=== PATIENT | male | born 1950 | race Caucasian/White ===

== ENCOUNTER → 2019-12-15 | Outpatient (CLI) | payer MEDICARE ==
[~2019-12-15] MED LIST: ALFU10TA PO; ASPI-496 PO; OXYC-302 PO; ROSU5TAB PO
== END | disposition home or self-care (01) ==
LOC: CVU 14:30
PROVIDERS: ATTEND Internal Medicine Cardiovascular Disease
DX: I65.23 Occlusion and stenosis of bilateral carotid arteries (principal); I63.9 Cerebral infarction, unspecified
CPT/HCPCS: 93880

== ENCOUNTER → 2020-05-28 | Outpatient (CLI) | payer MEDICARE ==
[~2020-05-28] MED LIST changes: -OXYC-302 PO; +OXYC1TAB14 PO
== END | disposition home or self-care (01) ==
LOC: STAR 10:30
PROVIDERS: ATTEND Hospitalist
DX: Z20.822 Contact with and (suspected) exposure to COVID-19 (principal)
CPT/HCPCS: U0003

== ENCOUNTER 2020-06-01 09:43 | Day surgery (SDC) | payer MEDICARE ==
[~2020-06-01] VITALS: Ht 175.3 cm; Wt 75.0 kg
[~2020-06-01 09:43] MED LIST changes: +OXYC1TAB12 PO; -OXYC1TAB14 PO
[2020-06-01] MEDS ORDERED: SODIUM CHLORIDE 0.9% 1,000 ML IV SCH (10:00)
[2020-06-01] MEDS ORDERED: PLEASE ENTER HEIGHT AND WEIGHT MC SCH (10:00)
[2020-06-01] MEDS ORDERED: ASPI81TA45 PO (10:00)
[2020-06-01 10:03] VITALS: BP 119/84
[2020-06-01] MEDS ORDERED: LIDOCAINE 2%, 20ML ONE (11:08)
[2020-06-01] MEDS ORDERED: PROPOFOL 10 MG/ML, 20ML ONE (11:37)
== END 2020-06-01 13:14 | disposition home or self-care (01) ==
LOC: CACL 09:43
PROVIDERS: ATTEND Internal Medicine Cardiovascular Disease
DX: I63.9 Cerebral infarction, unspecified (principal); I08.2 Rheumatic disorders of both aortic and tricuspid valves; E78.2 Mixed hyperlipidemia; Z79.82 Long term (current) use of aspirin; Z79.899 Other long term (current) drug therapy; Z87.891 Personal history of nicotine dependence; Z98.890 Other specified postprocedural states; Z80.51 Family history of malignant neoplasm of kidney
CPT/HCPCS: 33285; 93312; 93325; C1764; J2704

== ENCOUNTER 2020-09-11 05:49 | Day surgery (SDC) | payer MEDICARE ==
[~2020-09-11] VITALS: Ht 175.3 cm; Wt 72.7 kg
[~2020-09-11 05:49] MED LIST changes: +ASPI81TA45 PO; -OXYC1TAB12 PO; +OXYC1TAB14 PO
[2020-09-11 06:16] VITALS: BP 126/78
[2020-09-11 06:42] LABS: BASOPHILS % (AUTO) 1 % (0-1); EOSINOPHILS % (AUTO) 3 % (1-7); LYMPHOCYTES % (AUTO) 27 % (22-44); MEAN CORPUSCULAR HEMOGLOBIN 30.3 pg (27.5-34.5); MEAN CORPUSCULAR HGB CONC 34.2 g/dL (33.2-36.2); MEAN PLATELET VOLUME 7.1 fL (7.4-10.4); MONOCYTES % (AUTO) 8 % (2-9); NEUTROPHILS % (AUTO) 62 % (42-75); PLATELET COUNT 231 x10^3/uL (130-400); RED BLOOD COUNT 4.77 x10^6/uL (4.38-5.82); RED CELL DISTRIBUTION WIDTH 13.4 % (9.4-14.8)
[2020-09-11 06:52] LABS: CALCIUM 8.4 mg/dL (8.5-10.1); CHLORIDE 112 mmol/L (98-107)
[2020-09-11 06:53] LABS: INTERNATIONAL NORMALIZED RATIO 1.01 (0.93-1.1); PROTHROMBIN TIME 10.8 Seconds (9.6-11.5)
[2020-09-11 07:04] LABS: ANION GAP 4 mmol/L (5-15)
[2020-09-11] MEDS ORDERED: MIDAZOLAM 1 MG/ML, 2ML ONE (07:18)
[2020-09-11] MEDS ORDERED: FENTANYL PF 100 MCG/2ML ONE (07:19)
[2020-09-11] MEDS ORDERED: VERAPAMIL 2.5 MG/ML, 2ML ONE (07:19)
[2020-09-11] MEDS ORDERED: LIDOCAINE 2%, 20ML ONE (07:19)
[2020-09-11] MEDS ORDERED: HEPARIN 1,000 UNITS/ML, 10ML ONE (07:19)
== END 2020-09-11 11:53 | disposition home or self-care (01) ==
LOC: CACL 05:49
PROVIDERS: ATTEND Internal Medicine Cardiovascular Disease
DX: Z01.810 Encounter for preprocedural cardiovascular examination (principal); I63.9 Cerebral infarction, unspecified; I35.1 Nonrheumatic aortic (valve) insufficiency; E78.2 Mixed hyperlipidemia; E66.3 Overweight; Z68.23 Body mass index [BMI] 23.0-23.9, adult; Z79.01 Long term (current) use of anticoagulants; Z79.82 Long term (current) use of aspirin; Z79.899 Other long term (current) drug therapy; Z87.891 Personal history of nicotine dependence; Z80.51 Family history of malignant neoplasm of kidney; Z81.8 Family history of other mental and behavioral disorders
CPT/HCPCS: 36415; 80048; 85025; 85610; 93458; 99156; C1760; C1769; C1894; J2250; J3010; Q9967; J1644

== ENCOUNTER → 2020-09-14 | Outpatient (CLI) | payer MEDICARE ==
[~2020-09-14] MED LIST changes: +OMNIPAQUE 350 MG/ML, 100ML BOTTLE ONE
== END | disposition home or self-care (01) ==
LOC: CFH 07:36
PROVIDERS: ATTEND Thoracic Surgery (Cardiothoracic Vascular Surgery)
DX: J84.10 Pulmonary fibrosis, unspecified (principal); I35.1 Nonrheumatic aortic (valve) insufficiency
CPT/HCPCS: 71275; Q9967

== ENCOUNTER 2020-10-04 07:00 | Emergency (ER) | payer MEDICARE ==
[~2020-10-04 07:00] MED LIST changes: -OMNIPAQUE 350 MG/ML, 100ML BOTTLE ONE
[2020-10-04] MEDS ORDERED: ADENOSINE 6 MG/2 ML ONE (07:26)
[2020-10-04] MEDS ORDERED: ADENOSINE 6 MG/2 ML IVPush ONE (07:30)
[2020-10-04] MEDS ORDERED: SODIUM CHLORIDE FLUSH 10ML SYR IVF ONE (07:30)
[2020-10-04] MEDS ORDERED: SODIUM CHLORIDE 0.9% 1,000ML IVBOLUS ONE (07:30)
--- NOTE | 2020-10-04 07:40 | NUR ---
ADENOSINE GIVEN WITH ERP AT BS. CONVERSION OF SVT TO NSR, RATE OF 80S WITH ONE DOSE 6MG ADENOSINE. VSS/UPDATED IN COMPUTER. ALL ROOM MONITORING IN PLACE. AWAITING LABS AND CXR RESULTS. FAMILY AT BS, CALL LIGHT WITHIN REACH, WARM BLANKET PROVIDED.
[2020-10-04 08:10] LABS: ALBUMIN 2.8 g/dL (3.4-5.0); ANION GAP 5 mmol/L (5-15); BASOPHILS % (AUTO) 0 % (0-1); CALCIUM 7.7 mg/dL (8.5-10.1); CHLORIDE 114 mmol/L (98-107); EOSINOPHILS % (AUTO) 1 % (1-7); LYMPHOCYTES % (AUTO) 20 % (22-44); MEAN CORPUSCULAR HGB CONC 33.7 g/dL (33.2-36.2); MONOCYTES % (AUTO) 8 % (2-9); NEUTROPHILS % (AUTO) 71 % (42-75); PLATELET COUNT 187 x10^3/uL (130-400); RED BLOOD COUNT 4.56 x10^6/uL (4.38-5.82); RED CELL DISTRIBUTION WIDTH 13.9 % (9.4-14.8)
[2020-10-04 08:23] LABS: ALANINE AMINOTRANSFERASE 39 U/L (12-78); ALKALINE PHOSPHATASE 48 U/L (45-117); BILIRUBIN,TOTAL 1.2 mg/dL (0.2-1.0); CREATININE 0.65 mg/dL (0.7-1.3); TOTAL PROTEIN 5.8 g/dL (6.4-8.2); TROPONIN I < 0.015 ng/mL (0.000-0.045)
[2020-10-04 09:44] VITALS: BP 103/62
== END 2020-10-04 09:47 | disposition home or self-care (01) ==
LOC: ED 07:09
DX: I47.1 Supraventricular tachycardia (principal); Z90.89 Acquired absence of other organs
CPT/HCPCS: 36415; 71045; 80053; 83735; 84443; 84484; 85025; 93005; 96374; 99285; J0153; J7030

== ENCOUNTER 2020-10-16 04:31 | Inpatient (IN) | payer MEDICARE ==
[2020-10-15 13:52] LABS: BASOPHILS % (AUTO) 1 % (0-1); EOSINOPHILS % (AUTO) 3 % (1-7); LYMPHOCYTES % (AUTO) 28 % (22-44); MEAN CORPUSCULAR HEMOGLOBIN 30.1 pg (27.5-34.5); MEAN CORPUSCULAR HGB CONC 33.7 g/dL (33.2-36.2); MEAN PLATELET VOLUME 6.9 fL (7.4-10.4); MONOCYTES % (AUTO) 8 % (2-9); NEUTROPHILS % (AUTO) 61 % (42-75); PLATELET COUNT 249 x10^3/uL (130-400); RED BLOOD COUNT 4.65 x10^6/uL (4.38-5.82); RED CELL DISTRIBUTION WIDTH 13.7 % (9.4-14.8)
[2020-10-15 13:57] LABS: MICROSCOPIC NOT IND
[2020-10-15 14:01] LABS: ALANINE AMINOTRANSFERASE 41 U/L (12-78); ALBUMIN 3.5 g/dL (3.4-5.0); ANION GAP 7 mmol/L (5-15); CALCIUM 8.8 mg/dL (8.5-10.1); CHLORIDE 105 mmol/L (98-107)
[2020-10-15 14:03] LABS: INTERNATIONAL NORMALIZED RATIO 1.03 (0.93-1.1)
[2020-10-15 14:04] LABS: ALKALINE PHOSPHATASE 69 U/L (45-117); BILIRUBIN,TOTAL 1.1 mg/dL (0.2-1.0); CREATININE 0.67 mg/dL (0.7-1.3)
[~2020-10-16] VITALS: Ht 175.3 cm; Wt 73.5 kg
[~2020-10-16 04:31] MED LIST changes: +OXYC1TAB12 PO; -OXYC1TAB14 PO
[2020-10-16 04:42] VITALS: BP 119/68
[2020-10-16 04:45] VITALS: BP 127/81
[2020-10-16] MEDS ORDERED: CHLORHEXIDINE 15 ML UDC MM SCH (05:00)
[2020-10-16] MEDS ORDERED: INSULIN LISPRO 100 UNITS/ML, PEN SQ-INSULIN SCH (05:00)
[2020-10-16] MEDS ORDERED: MUPIROCIN OINT 2%, 22GM ONE (05:43)
[2020-10-16] MEDS: MUPIROCIN OINT 2%, 15GM TP SCH ×2 (05:55→17:18)
[2020-10-16] MEDS ORDERED: AMINOCAPROIC ACID 250 MG/ML, 20ML ONE ×2 (06:50→06:51)
[2020-10-16] MEDS ORDERED: PHENYLEPHRINE 10 MG/ML ONE ×2 (06:51→11:00)
[2020-10-16] MEDS ORDERED: PROPOFOL 10 MG/ML, 20ML ONE (06:51)
[2020-10-16] MEDS ORDERED: EPINEPHRINE 1 MG/ML, 1ML ONE (06:51)
[2020-10-16] MEDS ORDERED: ROCURONIUM 10MG/ML,5ML ONE ×2 (06:51)
[2020-10-16] MEDS ORDERED: FENTANYL PF 250 MCG/5ML ONE ×5 (06:52→06:53)
[2020-10-16] MEDS ORDERED: MIDAZOLAM 10MG/2 ML ONE (06:52)
[2020-10-16] MEDS ORDERED: VASOPRESSIN 20 UNIT in SODIUM CHLORIDE 0.9% 99 ML IV PRN (07:30)
[2020-10-16] MEDS ORDERED: DOBUTAMINE 250 MG in SODIUM CHLORIDE 0.9% 230 ML IV PRN (07:30)
[2020-10-16] MEDS ORDERED: MANNITOL PMX 20% 500 ML IVPB PRN (07:30)
[2020-10-16] MEDS ORDERED: POTASSIUM CHLORIDE 80 MEQ, SODIUM BICARBONATE 8.4% 10 MEQ, MAGNESIUM SULFATE 0.5 GM, LI... IV PRN (07:30)
[2020-10-16] MEDS ORDERED: DEXTROSE 4 GM TAB.CHEW PO PRN (07:30)
[2020-10-16] MEDS ORDERED: VANCOMYCIN 1,100 MG in SODIUM CHLORIDE 0.9% 250 ML IV PRN (07:30)
[2020-10-16] MEDS ORDERED: INSULIN REGULAR 100 UNITS/ML, 3ML VIAL IVPush PRN (07:30)
[2020-10-16] MEDS ORDERED: morphine SULFATE 10 MG/ML, 1ML IVPush PRN (07:30)
[2020-10-16] MEDS ORDERED: MIDAZOLAM 1 MG/ML, 2ML IV PRN (07:30)
[2020-10-16] MEDS ORDERED: GLUCAGON 1 MG IM PRN (07:30)
[2020-10-16] MEDS ORDERED: DEXTROSE 50%, 50ML SYRINGE IVPush PRN (07:30)
[2020-10-16] MEDS ORDERED: REGULAR INSULIN 100 UNITS in SODIUM CHLORIDE 0.9% 99 ML IV PRN (07:30)
[2020-10-16] MEDS ORDERED: EPINEPHRINE 5 MG in SODIUM CHLORIDE 0.9% 245 ML IV PRN ×2 (07:30)
[2020-10-16] MEDS ORDERED: PROCHLORPERAZINE 5 MG/ML, 2ML IVPush PRN (07:30)
[2020-10-16] MEDS ORDERED: FENTANYL PF 100 MCG/2ML IV PRN (07:30)
[2020-10-16] MEDS ORDERED: SODIUM CHLORIDE 0.9% 1,000 ML IV SCH (07:30)
[2020-10-16] MEDS ORDERED: OXYcodone IR 5MG TABLET PO PRN (07:30)
[2020-10-16] MEDS ORDERED: NITROGLYCERIN/D5W PMX 250 ML IV PRN (07:30)
[2020-10-16] MEDS ORDERED: DEXMEDETOMIDINE 200 MCG in SODIUM CHLORIDE 0.9% 48 ML IV PRN (07:30)
[2020-10-16] MEDS ORDERED: ONDANSETRON 2MG/ML, 2ML IVPush PRN (07:30)
[2020-10-16] MEDS: OMEPRAZOLE 20 MG CAPSULE.DR PO SCH (07:30)
[2020-10-16] MEDS ORDERED: CEFUROXIME 1.5 GM in SODIUM CHLORIDE 0.9% 50 ML IVPB PRN (07:30)
[2020-10-16] MEDS ORDERED: PHENYLEPHRINE 50 MG in SODIUM CHLORIDE 0.9% 245 ML IV PRN (07:30)
[2020-10-16] MEDS ORDERED: ALBUMIN HUMAN 5% 500 ML IV PRN (07:30)
[2020-10-16] MEDS ORDERED: SODIUM BICARB 8.4%, 50ML SYRINGE IV PRN (07:30)
[2020-10-16] MEDS ORDERED: PROMETHAZINE 25 MG SUPP PR PRN (07:30)
[2020-10-16] MEDS ORDERED: DEXMEDETOMIDINE 400 MCG in SODIUM CHLORIDE 0.9% 96 ML IV PRN (07:30)
[2020-10-16] MEDS ORDERED: AMIODARONE 50 MG/ML, 3ML ONE (08:31)
[2020-10-16] MEDS: ACETAMINOPHEN 500 MG TABLET PO SCH ×3 (09:00→20:32)
[2020-10-16] MEDS ORDERED: CALCIUM CHLORIDE 13.6 MEQ in SODIUM CHLORIDE 0.9% 100 ML IVPB PRN (09:00)
[2020-10-16] MEDS: DOCUSATE 100 MG CAPSULE PO SCH ×2 (09:00→20:33)
[2020-10-16] MEDS: SENNA/DOCUSATE TABLET PO SCH ×2 (09:00→20:33)
[2020-10-16] MEDS: POLYETHYLENE GLYCOL 17 GM PACKET PO SCH (09:00)
[2020-10-16] MEDS ORDERED: SODIUM CHLORIDE FLUSH 10ML SYR IVF SCH (09:00)
[2020-10-16] MEDS: SODIUM CHLORIDE FLUSH 10ML SYR IVF SCH ×2 (09:00→21:18)
[2020-10-16] MEDS ORDERED: LACTATED RINGERS 500 ML IV PRN (09:00)
[2020-10-16] MEDS: KSCALE TO 4.5 IV SCH ×3 (10:00→22:00)
[2020-10-16] MEDS ORDERED: CALCIUM CHLORIDE 10%, 10ML SYR ONE (10:16)
[2020-10-16] MEDS: INSULIN LISPRO 100 UNITS/ML, PEN SQ-INSULIN SCH ×4 (11:00→22:41)
[2020-10-16] MEDS ORDERED: SODIUM BICARBONATE 1 MEQ/ML, 50ML VIAL ONE (11:00)
[2020-10-16] MEDS ORDERED: HEPARIN 1,000 UNITS/ML, 30ML ONE (11:01)
[2020-10-16] MEDS ORDERED: ALBUMIN HUMAN 25% 50 ML ONE (11:01)
[2020-10-16] MEDS ORDERED: LIDOCAINE 2%, 20ML ONE (11:01)
[2020-10-16 11:15] LABS: GLUCOSE BY BLOOD GAS ANALYZER 157 mg/dL (70-110); HEMOGLOBIN BY BLOOD GAS ANALYZ 12.3 g/dL (14.0-18.0); POTASSIUM BY BLOOD GAS ANALYZR 3.8 mmol/L (3.6-5.5)
[2020-10-16 11:16] LABS: FIO2 100 %
[2020-10-16 11:28] LABS: INTERNATIONAL NORMALIZED RATIO 1.22 (0.93-1.1); PROTHROMBIN TIME 12.9 Seconds (9.6-11.5)
[2020-10-16] MEDS: MAGNESIUM SULFATE 1 GM in SODIUM CHLORIDE 0.9% 100 ML IVPB SCH (12:02)
[2020-10-16] MEDS ORDERED: POTASSIUM CHLORIDE PMX 100 ML IV ONE (12:30)
[2020-10-16] MEDS: OXYcodone IR 5MG TABLET PO PRN ×5 (14:06→23:54)
[2020-10-16] MEDS ORDERED: VANCOMYCIN 1,100 MG in SODIUM CHLORIDE 0.9% 250 ML IVPB SCH (17:00)
[2020-10-16] MEDS ORDERED: CEFUROXIME 1.5 GM in SODIUM CHLORIDE 0.9% 50 ML IVPB SCH (17:00)
[2020-10-16] MEDS: CEFUROXIME 1.5 GM in SODIUM CHLORIDE 0.9% 50 ML IVPB SCH (20:03)
[2020-10-16] MEDS ORDERED: DIPHENHYDRAMINE 25 MG CAPSULE PO PRN (21:00)
[2020-10-16] MEDS: VANCOMYCIN 1,100 MG in SODIUM CHLORIDE 0.9% 250 ML IVPB SCH (21:19)
[2020-10-17] MEDS: ACETAMINOPHEN 500 MG TABLET PO SCH ×4 (03:21→20:05)
[2020-10-17] MEDS: INSULIN LISPRO 100 UNITS/ML, PEN SQ-INSULIN SCH ×5 (03:29→20:10)
[2020-10-17 03:49] LABS: BASOPHILS % (AUTO) 0 % (0-1); EOSINOPHILS % (AUTO) 0 % (1-7); LYMPHOCYTES % (AUTO) 5 % (22-44); MEAN CORPUSCULAR HGB CONC 33.3 g/dL (33.2-36.2); MEAN PLATELET VOLUME 7.5 fL (7.4-10.4); MONOCYTES % (AUTO) 8 % (2-9); NEUTROPHILS % (AUTO) 87 % (42-75); PLATELET COUNT 145 x10^3/uL (130-400); RED BLOOD COUNT 3.54 x10^6/uL (4.38-5.82); RED CELL DISTRIBUTION WIDTH 13.6 % (9.4-14.8)
[2020-10-17 03:53] LABS: ANION GAP 5 mmol/L (5-15); CALCIUM 8.1 mg/dL (8.5-10.1); CHLORIDE 111 mmol/L (98-107); CREATININE 0.55 mg/dL (0.7-1.3)
[2020-10-17] MEDS: KSCALE TO 4.5 IV SCH (04:08)
[2020-10-17] MEDS: OXYcodone IR 5MG TABLET PO PRN ×3 (05:30→20:04)
[2020-10-17] MEDS: MUPIROCIN OINT 2%, 15GM TP SCH (06:30)
[2020-10-17] MEDS: MUPIROCIN OINT 2%, 15GM NAS SCH ×2 (06:30→18:00)
[2020-10-17] MEDS: CEFUROXIME 1.5 GM in SODIUM CHLORIDE 0.9% 50 ML IVPB SCH (07:52)
[2020-10-17] MEDS: DOCUSATE 100 MG CAPSULE PO SCH ×2 (08:43→20:05)
[2020-10-17] MEDS: ASPIRIN 81 MG TABLET EC PO SCH (08:43)
[2020-10-17] MEDS: OMEPRAZOLE 20 MG CAPSULE.DR PO SCH (08:43)
[2020-10-17] MEDS: POLYETHYLENE GLYCOL 17 GM PACKET PO SCH ×2 (08:43→10:00)
[2020-10-17] MEDS: SENNA/DOCUSATE TABLET PO SCH ×2 (08:43→20:05)
[2020-10-17] MEDS: CHLORHEXIDINE 15 ML UDC MM SCH ×2 (08:44→20:05)
[2020-10-17] MEDS: SODIUM CHLORIDE FLUSH 10ML SYR IVF SCH ×2 (08:44→20:06)
[2020-10-17] MEDS: VANCOMYCIN 1,100 MG in SODIUM CHLORIDE 0.9% 250 ML IVPB SCH (08:47)
[2020-10-17] MEDS ORDERED: KETOROLAC 15 MG/1ML IVPush SCH (11:00)
[2020-10-17] MEDS: FUROSEMIDE 20 MG/2 ML IV SCH (11:27)
[2020-10-17] MEDS: POTASSIUM CHLORIDE 10 MEQ TABLET.ER PO SCH (11:27)
[2020-10-17] MEDS: GUAIFENESIN ER 600 MG TABLET PO SCH ×2 (11:27→20:05)
[2020-10-17] MEDS: MAGNESIUM SULFATE 1 GM in SODIUM CHLORIDE 0.9% 100 ML IVPB SCH (11:30)
[2020-10-17] MEDS: KETOROLAC 30 MG/1 ML IVPush SCH ×2 (12:19→18:06)
[2020-10-17 13:35] VITALS: BP 107/76
[2020-10-17 19:32] VITALS: BP 119/77
[2020-10-18] MEDS: KETOROLAC 30 MG/1 ML IVPush SCH ×4 (00:12→17:10)
[2020-10-18 02:00] VITALS: BP 145/79
[2020-10-18] MEDS: OXYcodone IR 5MG TABLET PO PRN ×7 (02:02→21:24)
[2020-10-18] MEDS: ACETAMINOPHEN 500 MG TABLET PO SCH ×4 (02:03→21:22)
[2020-10-18] MEDS: MUPIROCIN OINT 2%, 15GM NAS SCH ×2 (05:21→17:24)
[2020-10-18 06:18] LABS: BASOPHILS % (AUTO) 0 % (0-1); EOSINOPHILS % (AUTO) 0 % (1-7); LYMPHOCYTES % (AUTO) 10 % (22-44); MEAN CORPUSCULAR HEMOGLOBIN 31.2 pg (27.5-34.5); MEAN CORPUSCULAR HGB CONC 34.7 g/dL (33.2-36.2); MEAN PLATELET VOLUME 7.4 fL (7.4-10.4); MONOCYTES % (AUTO) 8 % (2-9); NEUTROPHILS % (AUTO) 81 % (42-75); PLATELET COUNT 115 x10^3/uL (130-400); RED BLOOD COUNT 3.37 x10^6/uL (4.38-5.82); RED CELL DISTRIBUTION WIDTH 13.7 % (9.4-14.8)
[2020-10-18 06:29] LABS: ANION GAP 4 mmol/L (5-15); CALCIUM 7.9 mg/dL (8.5-10.1); CHLORIDE 108 mmol/L (98-107); CREATININE 0.53 mg/dL (0.7-1.3)
[2020-10-18] MEDS: INSULIN LISPRO 100 UNITS/ML, PEN SQ-INSULIN SCH ×4 (07:00→22:35)
[2020-10-18] MEDS ORDERED: BISACODYL 10 MG SUPP PR PRN (07:30)
[2020-10-18 07:59] LABS: O2 FLOW ROOM AIR L/min
[2020-10-18] MEDS: CHLORHEXIDINE 15 ML UDC MM SCH ×2 (08:45→21:23)
[2020-10-18] MEDS: OMEPRAZOLE 20 MG CAPSULE.DR PO SCH (08:46)
[2020-10-18] MEDS: POTASSIUM CHLORIDE 10 MEQ TABLET.ER PO SCH (08:46)
[2020-10-18] MEDS: DOCUSATE 100 MG CAPSULE PO SCH ×2 (08:46→21:23)
[2020-10-18] MEDS: SENNA/DOCUSATE TABLET PO SCH ×2 (08:46→21:22)
[2020-10-18] MEDS: GUAIFENESIN ER 600 MG TABLET PO SCH ×2 (08:46→21:23)
[2020-10-18] MEDS: ASPIRIN 81 MG TABLET EC PO SCH (08:46)
[2020-10-18] MEDS: FUROSEMIDE 20 MG/2 ML IV SCH (08:47)
[2020-10-18] MEDS: POLYETHYLENE GLYCOL 17 GM PACKET PO SCH (08:47)
[2020-10-18] MEDS: SODIUM CHLORIDE FLUSH 10ML SYR IVF SCH ×2 (08:47→21:23)
[2020-10-18 08:55] VITALS: BP 143/84
[2020-10-18] MEDS: MAGNESIUM SULFATE 1 GM in SODIUM CHLORIDE 0.9% 100 ML IVPB SCH (10:16)
[2020-10-18 13:22] VITALS: BP 100/68
[2020-10-18 19:43] VITALS: BP 126/78
[2020-10-19] MEDS: KETOROLAC 30 MG/1 ML IVPush SCH ×5 (00:03→23:17)
[2020-10-19 00:29] VITALS: BP 110/78
[2020-10-19] MEDS: OXYcodone IR 5MG TABLET PO PRN ×8 (00:29→23:15)
[2020-10-19] MEDS: ACETAMINOPHEN 500 MG TABLET PO SCH ×4 (03:43→20:14)
[2020-10-19] MEDS: MUPIROCIN OINT 2%, 15GM NAS SCH ×2 (06:34→17:43)
[2020-10-19 06:46] LABS: BASOPHILS % (AUTO) 0 % (0-1); EOSINOPHILS % (AUTO) 1 % (1-7); LYMPHOCYTES % (AUTO) 13 % (22-44); MEAN CORPUSCULAR HGB CONC 34.6 g/dL (33.2-36.2); MEAN PLATELET VOLUME 7.4 fL (7.4-10.4); MONOCYTES % (AUTO) 10 % (2-9); NEUTROPHILS % (AUTO) 76 % (42-75); PLATELET COUNT 136 x10^3/uL (130-400); RED BLOOD COUNT 3.63 x10^6/uL (4.38-5.82); RED CELL DISTRIBUTION WIDTH 13.5 % (9.4-14.8)
[2020-10-19 06:56] LABS: CHLORIDE 107 mmol/L (98-107)
[2020-10-19] MEDS: INSULIN LISPRO 100 UNITS/ML, PEN SQ-INSULIN SCH (07:00)
[2020-10-19 07:01] LABS: ANION GAP 6 mmol/L (5-15); CALCIUM 8.2 mg/dL (8.5-10.1); CREATININE 0.47 mg/dL (0.7-1.3)
[2020-10-19 07:18] VITALS: BP 113/77
[2020-10-19] MEDS: OMEPRAZOLE 20 MG CAPSULE.DR PO SCH (09:51)
[2020-10-19] MEDS: DOCUSATE 100 MG CAPSULE PO SCH ×2 (09:52→20:14)
[2020-10-19] MEDS: GUAIFENESIN ER 600 MG TABLET PO SCH ×2 (09:52→20:14)
[2020-10-19] MEDS: POLYETHYLENE GLYCOL 17 GM PACKET PO SCH (09:52)
[2020-10-19] MEDS: SENNA/DOCUSATE TABLET PO SCH ×2 (09:52→20:14)
[2020-10-19] MEDS: ASPIRIN 81 MG TABLET EC PO SCH (09:52)
[2020-10-19] MEDS: POTASSIUM CHLORIDE 10 MEQ TABLET.ER PO SCH (09:52)
[2020-10-19] MEDS: FUROSEMIDE 20 MG/2 ML IV SCH (09:53)
[2020-10-19] MEDS: METOPROLOL TARTRATE 25 MG TAB PO SCH ×2 (09:57→17:43)
[2020-10-19] MEDS: SODIUM CHLORIDE FLUSH 10ML SYR IVF SCH ×2 (09:58→20:15)
[2020-10-19 12:43] VITALS: BP 111/68
[2020-10-19 17:45] VITALS: BP 112/80
[2020-10-19 20:10] VITALS: BP 123/79
[2020-10-20 01:41] VITALS: BP 121/74
[2020-10-20] MEDS: OXYcodone IR 5MG TABLET PO PRN ×6 (02:02→20:36)
[2020-10-20] MEDS: ACETAMINOPHEN 500 MG TABLET PO SCH ×4 (02:02→21:03)
[2020-10-20] MEDS: MUPIROCIN OINT 2%, 15GM NAS SCH ×2 (05:38→18:22)
[2020-10-20] MEDS: METOPROLOL TARTRATE 25 MG TAB PO SCH ×2 (05:38→18:22)
[2020-10-20] MEDS: KETOROLAC 30 MG/1 ML IVPush SCH ×4 (05:39→23:03)
[2020-10-20 05:44] LABS: BASOPHILS % (AUTO) 0 % (0-1); EOSINOPHILS % (AUTO) 3 % (1-7); LYMPHOCYTES % (AUTO) 18 % (22-44); MEAN CORPUSCULAR HEMOGLOBIN 30.6 pg (27.5-34.5); MEAN CORPUSCULAR HGB CONC 34.6 g/dL (33.2-36.2); MEAN PLATELET VOLUME 7.4 fL (7.4-10.4); MONOCYTES % (AUTO) 11 % (2-9); NEUTROPHILS % (AUTO) 68 % (42-75); PLATELET COUNT 161 x10^3/uL (130-400); RED BLOOD COUNT 3.56 x10^6/uL (4.38-5.82); RED CELL DISTRIBUTION WIDTH 13.2 % (9.4-14.8)
[2020-10-20 05:54] LABS: ANION GAP 6 mmol/L (5-15); CALCIUM 8.5 mg/dL (8.5-10.1); CHLORIDE 106 mmol/L (98-107)
[2020-10-20] MEDS: OMEPRAZOLE 20 MG CAPSULE.DR PO SCH (06:32)
[2020-10-20 07:13] VITALS: BP 134/81
[2020-10-20] MEDS: FUROSEMIDE 20 MG/2 ML IV SCH (09:27)
[2020-10-20] MEDS: SENNA/DOCUSATE TABLET PO SCH ×2 (09:28→21:04)
[2020-10-20] MEDS: ASPIRIN 81 MG TABLET EC PO SCH (09:28)
[2020-10-20] MEDS: POLYETHYLENE GLYCOL 17 GM PACKET PO SCH (09:28)
[2020-10-20] MEDS: GUAIFENESIN ER 600 MG TABLET PO SCH ×2 (09:28→21:04)
[2020-10-20] MEDS: DOCUSATE 100 MG CAPSULE PO SCH ×2 (09:28→21:04)
[2020-10-20] MEDS: POTASSIUM CHLORIDE 10 MEQ TABLET.ER PO SCH (09:28)
[2020-10-20] MEDS: SODIUM CHLORIDE FLUSH 10ML SYR IVF SCH ×2 (09:33→21:04)
[2020-10-20 13:21] VITALS: BP 118/50
[2020-10-20] MEDS ORDERED: METO25TA35 PO (15:18)
[2020-10-20] MEDS ORDERED: FURO-93 PO (15:18)
[2020-10-20] MEDS ORDERED: OXYC5TAB98 PO (15:18)
[2020-10-20] MEDS ORDERED: POTA10TA5 PO (15:18)
[2020-10-20 18:24] VITALS: BP 111/74
[2020-10-20 20:38] VITALS: BP 124/79
[2020-10-21] MEDS: OXYcodone IR 5MG TABLET PO PRN ×3 (00:20→06:41)
[2020-10-21 01:37] VITALS: BP 122/77
[2020-10-21] MEDS: ACETAMINOPHEN 500 MG TABLET PO SCH (03:24)
[2020-10-21 05:15] LABS: BASOPHILS % (AUTO) 0 % (0-1); CALCIUM 8.7 mg/dL (8.5-10.1); CHLORIDE 105 mmol/L (98-107); EOSINOPHILS % (AUTO) 4 % (1-7); LYMPHOCYTES % (AUTO) 16 % (22-44); MEAN CORPUSCULAR HEMOGLOBIN 30.4 pg (27.5-34.5); MEAN CORPUSCULAR HGB CONC 34.3 g/dL (33.2-36.2); MEAN PLATELET VOLUME 6.9 fL (7.4-10.4); MONOCYTES % (AUTO) 12 % (2-9); NEUTROPHILS % (AUTO) 68 % (42-75); PLATELET COUNT 218 x10^3/uL (130-400); RED BLOOD COUNT 3.58 x10^6/uL (4.38-5.82)
[2020-10-21 05:16] LABS: ANION GAP 5 mmol/L (5-15); CREATININE 0.49 mg/dL (0.7-1.3)
[2020-10-21] MEDS: KETOROLAC 30 MG/1 ML IVPush SCH (06:37)
[2020-10-21] MEDS: OMEPRAZOLE 20 MG CAPSULE.DR PO SCH (06:40)
[2020-10-21] MEDS: METOPROLOL TARTRATE 25 MG TAB PO SCH (06:40)
[2020-10-21] MEDS: MUPIROCIN OINT 2%, 15GM NAS SCH (06:41)
[2020-10-21 07:03] VITALS: BP 115/78
[2020-10-21] MEDS: POTASSIUM CHLORIDE 10 MEQ TABLET.ER PO SCH (08:00)
[2020-10-21] MEDS: ASPIRIN 81 MG TABLET EC PO SCH (08:41)
[2020-10-21] MEDS: DOCUSATE 100 MG CAPSULE PO SCH (08:41)
[2020-10-21] MEDS: SODIUM CHLORIDE FLUSH 10ML SYR IVF SCH (08:41)
[2020-10-21] MEDS: GUAIFENESIN ER 600 MG TABLET PO SCH (08:42)
[2020-10-21] MEDS: POLYETHYLENE GLYCOL 17 GM PACKET PO SCH (08:42)
[2020-10-21] MEDS: SENNA/DOCUSATE TABLET PO SCH (08:42)
[2020-10-21] MEDS ORDERED: FUROSEMIDE 40 MG TABLET PO ONE (09:00)
[2020-10-21] MEDS: FUROSEMIDE 20 MG/2 ML IV SCH (09:00)
== END 2020-10-21 09:25 | disposition home health service (06) | DRG 219 ==
LOC: 5SO 04:31 → CCU 08:38 → 5SO 10-17 12:24
PROVIDERS: ADMIT Thoracic Surgery (Cardiothoracic Vascular Surgery); ATTEND Thoracic Surgery (Cardiothoracic Vascular Surgery)
PROC: 5A1221Z Performance of Cardiac Output, Continuous (ICD-10-PCS; 2020-10-16)
PROC: 5A1223Z Performance of Cardiac Pacing, Continuous (ICD-10-PCS; 2020-10-16)
PROC: B24BZZ4 Ultrasonography of Heart with Aorta, Transesophageal (ICD-10-PCS; 2020-10-16)
PROC: 02RF08Z Replacement of Aortic Valve with Zooplastic Tissue, Open Approach (ICD-10-PCS; principal; 2020-10-16 07:30)
DX: I35.1 Nonrheumatic aortic (valve) insufficiency (principal); I50.33 Acute on chronic diastolic (congestive) heart failure; M62.81 Muscle weakness (generalized); E11.9 Type 2 diabetes mellitus without complications; E78.5 Hyperlipidemia, unspecified; I35.8 Other nonrheumatic aortic valve disorders; R74.8 Abnormal levels of other serum enzymes; Z79.4 Long term (current) use of insulin
CPT/HCPCS: 36415; 36600; 71045; 71046; 80048; 80053; 81003; 82330; 82800; 82803; 82810; 82947; 82962; 83036; 83735; 84132; 84295; 85014; 85018; 85025; 85049; 85347; 85610; 85730; 86850; 86900; 86923; 87081; 88305; 93005; 93312; 93321; 93325; 93880; 94002; C1768; G0378; J0171; J0697; J1644; J1885; J2250; J2405; J2704; J3010; J3370; J3475; J3480; P9047; C1760; C1762; J0282; J1815; J1940; J2370; J7050